=== PATIENT | female | born 1955 | race African-American/Black ===

== ENCOUNTER 2016-07-31 20:00 | Observation (INO) ==
[2016-07-31 21:01] LABS: Basophils % 0.3 % (0.0-0.8); Eosinophils % 0.3 % (0.00-10.9); Hematocrit 34.3 VOL% (35.7-47.0); Hemoglobin 10.9 GM/DL (12.0-16.0); Immature Granulocytes % 0.4 %; Immature Granulocytes Absolute 0.04 #; Lymphocytes # 2.2 10*3/uL (1.4-4.0); Lymphocytes % 22.6 % (21.3-54.2); Mean Corpuscular HGB Conc 31.8 GM/DL (32-36); Mean Corpuscular Hemoglobin 29 PG (27-34); Mean Corpuscular Volume 90.3 FL (87-102); Mean Platelet Volume 11.5 FL (9.6-12.0); Monocytes # 0.4 10*3/uL (0.11-0.8); Neutrophils % 72.4 % (38.7-73.9); Platelet Count 236 T/CUMM (130-400); Red Cell Distribution Width 16.7 % (9.3-17.3); White Blood Count 9.6 T/CUMM (4-12)
--- NOTE | 2016-07-31 21:06 | Emergency Department Note ---
Bubba Segura Brittany, am scribing for, and in the presence of, Adele Gomes DO 21:01. IEliseo Debra, DO, personally performed the services described in this documentation, ascribed by Queenie Mac in my presence, and it is both accurate and complete . Arrival - Arrival Chief Complaint: Alcohol Intoxication Stated Complaint: nausea/vomiting ED Nursing Triage Note: patient to room via ems with c/o nausea, vomitig. Patient does have a large amout of ETOH on board. Patient is confused and can not answer a lot of question. speech is slow and almost not understandable. Mode of Arrival: Stretcher Limitations: Altered Mental Status Source: Family, RN Notes Reviewed - History of Present Illness HPI Narrative: Ms. Macdonald is a 61 y/o black female presenting to the ED by EMS from home for further evaluation of Alcohol Intoxication. History is limited secondary to patient having an Altered Mental Status secondary to ETOH intoxication. Family will be providing history. Family member in room reports that a bystander found patient and activated EMS. Patient reportedly has a history of frequent ETOH use and has had 2-3 pints of [place] liquor today. She is a patient of Dr. Cameron. Family denies patient having a history of CHF. In room patient appears to be lethargic. She has dried drool surrounding her mouth and has snoring respirations. No other complaint/pain. Allergies/Adverse Reactions: Allergies Allergy/AdvReac Type Severity Reaction Status Date / Time Penicillins Allergy Nausea Verified 07/31/16 20:17 lisinopril AdvReac ANAPHYLAXIS Verified 07/31/16 20:17 Home Medications: Home Medications Medication Instructions Recorded Confirmed Type Folic Acid Tab 1 mg PO DAILY 03/31/16 04/21/16 History Lovastatin 40 mg PO DAILY 03/31/16 04/21/16 History Sertraline [Zoloft] 50 mg PO DAILY 03/31/16 04/21/16 History Carvedilol [Coreg] 3.125 mg PO BID #60 tablet 04/01/16 04/21/16 Rx Glimepiride [Amaryl] 1 mg PO BID #60 tablet 04/01/16 04/21/16 Rx Multivitamin (Centrum) [Centrum 1 tablet PO DAILY tablet 04/01/16 04/21/16 Rx Tab] Thiamine Tab [Vitamin B1 Tab] 100 mg PO DAILY tablet 04/01/16 04/21/16 Rx amLODIPine [Norvasc] 10 mg PO DAILY #30 tablet 04/01/16 04/21/16 Rx Acetaminophen Tab [Tylenol Tab] 325 mg PO Q4H PRN #0 tablet 04/28/16 Rx Levofloxacin Tab [Levaquin Tab] 500 mg PO DAILY #7 tablet 04/28/16 Rx Review of System - Review of System ROS unobtainable: due to mental status - Review of System Constitutional: Present: as per HPI Medical,Surgical,& Family Hx - Medical History Cardio: History of: Hypertension Psychological: History of: Depression Endocrine: History of: Diabetes Mellitus (IDDM), Diabetes Mellitus (NIDDM), Dyslipidemia Rheumatology: History of;: Gout (right foot) Respiratory: History of: Bronchitis Musculoskeletal: History of: Back/Neck Problems No history of: Osteoporosis - Surgical History Abdominal Surgeries: Surgical HX of: Colonoscopy (in last 5 years) - Family History Family History: Reports;: Family Diabetes, Family Hypertension - Social History Smoking Status: Never smoker Frequency of Alcohol Use: Frequently Type of Drug Use: None Exam Vital Signs: Vital Signs Temperature 97.3 F L 07/31/16 20:12 Pulse Rate 95 H 07/31/16 20:12 Respiratory Rate 22 07/31/16 20:12 Blood Pressure 142/87 07/31/16 20:12 O2 Sat by Pulse Oximetry 95 07/31/16 20:12 - General General appearance: appears intoxicated, lethargic - Head Head exam: Present: atraumatic, normocephalic, normal inspection - Eye Eye exam: Present: normal appearance, PERRL, EOMI - ENT ENT exam: Present: mucous membranes moist. Absent: normal oropharynx (dried drool surrounding the lips) - Neck Neck exam: Present: normal inspection - Chest Chest inspection: Present: normal inspection, symmetric chest wall rise - Respiratory Respiratory exam: Absent: normal lung sounds bilaterally (snoring respirations) - Cardiovascular Cardiovascular exam: Present: normal rhythm, tachycardia, normal heart sounds. Absent: regular rate - Abdominal Exam Abdominal exam: Present: soft, normal bowel sounds - Extremities Exam Extremities exam: Present: normal inspection - Back Exam Back exam: Present: normal inspection - Neurological Exam Neurological exam: Present: CN II-XII intact. Absent: alert (patient is not alert secondary to high ETOH intoxication), oriented X3, motor sensory deficit - Skin Skin exam: Present: warm, dry, intact, normal color, rash (chronic appearing rash) Course Course Narrative: pt will be admitted to hospitalist. Results - Labs CBC & BMP: 07/31/16 20:36 07/31/16 20:36 Lab Results: I have reviewed the patients labs Labs: Laboratory Tests 07/31/16 20:36 WBC 9.6 RBC 3.80 Hgb 10.9 L Hct 34.3 L MCHC 31.8 L Plt Count 236 Laboratory Tests 07/31/16 07/31/16 20:36 20:36 Sodium 142 Potassium 4.6 Chloride 110 H Carbon Dioxide 24 Anion Gap 12.6 BUN 22 H Creatinine 1.00 GFR Calculation 76 BUN/Creatinine Ratio 22.00 H Glucose 113 H Calculated Osmolality 286.1 Calcium 8.1 L Total Bilirubin < 0.39 AST 21 ALT 13 Alkaline Phosphatase 88 Total Protein 7.5 Albumin 3.8 Globulin 3.7 H Albumin/Globulin Ratio 1.0 L Salicylates < 2.8 L Acetaminophen < 2.0 L Serum Alcohol 462 Laboratory Tests 07/31/16 20:36 B-Natriuretic Peptide 72 Laboratory Tests 07/31/16 22:20 Urine Color Yellow Urine Appearance Slightly hazy Urine pH 5.0 Ur Specific [place] 1.013 Urine Protein >=500 Urine Glucose (UA) Negative Urine Ketones Negative Urine Blood Small Urine Nitrate Negative Urine Bilirubin Negative Urine Urobilinogen < 2.0 H Urine Leukocytes Negative Ur Squamous Epith Cells Occasional Urine Bacteria Occasional Urine Mucus Occasional Urine Yeast (Budding) Many - Diagnostic Findings Procedure: Chest x-ray: report reviewed by me (Continued cardiomegaly. There is nonspecific prominence of lung markings suspicious for interstitial pulmonary edema. Chronic/fibrotic change and interstitial pneumonia may have similar appearance. Question small bilateral pleural fluid. Visualized osseous and surrounding soft tissue structures appear grossly unchanged.), CT: report reviewed by me (CT Head: No acute intracranial abnormality is demonstrated. Mild global volume loss and probable mild chronic microvascular ischemic change. Old lacunar infarcts involving the region of the anterior limb of the internal capsule bilaterally. Bilateral proptosis noted which can be seen in thyroid disease.) Disposition Clinical Impression: Alcoholic intoxication Case discussed with: patient, patient's family Disposition: Still a Patient Condition: Stable Instructions: Alcohol Intoxication (ED) Time of Disposition: 23:16
[2016-07-31 21:19] LABS: Alanine Aminotransferase 13 U/L (13-56); Albumin 3.8 G/DL (3.4-5.0); Alkaline Phosphatase 88 U/L (45-117); Aspartate Amino Transferase 21 U/L (0-37); Bilirubin,Total < 0.39 MG/DL (0.2-1.0); Blood Urea Nitrogen 22 MG/DL (7-18); Calcium 8.1 MG/DL (8.5-10.1); Glucose 113 MG/DL (74-106); Osmolality,Calculated 286.1 MOS/KG (273-304); Potassium 4.6 MMOL/L (3.5-5.1); Salicylate < 2.8 MG/DL (2.8-20); Sodium 142 MMOL/L (136-145); Total Protein 7.5 G/DL (6.4-8.3)
[2016-07-31 21:20] LABS: Acetaminophen < 2.0 UG/ML (10-30)
--- NOTE | 2016-07-31 21:56 | XRay Report ---
XR chest 1V portable Indication: Abnormal breath sounds Comparison: Chest x-ray dated April 24, 2016 Technique: Single frontal view of the chest. Findings: Continued cardiomegaly. There is nonspecific prominence of lung markings suspicious for interstitial pulmonary edema. Chronic/fibrotic change and interstitial pneumonia may have similar appearance. Question small bilateral pleural fluid. Visualized osseous and surrounding soft tissue structures appear grossly unchanged. IMPRESSION: As above. PROCEDURE INTERPRETED AT [facility] DEPARTMENT OF RADIOLOGY Final Report Signed by: Dr Christiano Moy
[2016-07-31] MEDS ORDERED: SODIUM CHLORIDE 0.9% 1,000 ML IV STA (22:08)
--- NOTE | 2016-07-31 22:23 | CT Report ---
CT head/brain wo con Indication: AMS Comparison: None Technique: Multiple axial tomographic images of the brain were obtained without the use of intravenous contrast. Findings: Midline structures are nondisplaced. There is no evidence of acute intracranial hemorrhage or hydrocephalus. Mild periventricular and subcortical hypoattenuation noted which is nonspecific but consistent with chronic microvascular ischemic change. Demyelinating process and vasculitis less likely considerations. Mild global volume loss present. Old lacunar infarcts involving the region of the anterior limb of the internal capsule bilaterally. Atherosclerotic calcifications demonstrated. Bilateral proptosis noted which can be seen in thyroid disease. The visualized paranasal sinuses and bilateral mastoid air cells are essentially clear. IMPRESSION: No acute intracranial abnormality demonstrated. Mild global volume loss and probable mild chronic microvascular ischemic change. Old lacunar infarcts involving the region of the anterior limb of the internal capsule bilaterally. Bilateral proptosis noted which can be seen in thyroid disease. The CT exam was performed using one or more of the following dose reduction techniques: Automated exposure control, adjustment of the mA and/or kV according to patient size, or use of iterative reconstruction technique. PROCEDURE INTERPRETED AT [facility] DEPARTMENT OF RADIOLOGY Final Report Signed by: Dr Christiano Moy
[2016-07-31 22:56] LABS: Apearance,Urine Slightly Hazy (Clear); Bacteria,Urine Occasional /HPF (Few); Bilirubin,Urine Negative (Negative); Blood, Urine Small mg/dL (Negative); Glucose,Urine (UA) Negative (Negative); Ketones,Urine Negative (Negative); Mucus,Urine Occasional /LPF (Occasional); Nitrite,Urine Negative (Negative); Protein,Urine >=500 MG/DL; Squamous Epithelial Cell,Urine Occasional /HPF (0-10); Urine Color Yellow (Yellow); Urine Specific Gravity 1.013 (1.001-1.035); Urine Urobilinogen < 2.0 EU/DL (0.2-1.0)
--- NOTE | 2016-07-31 23:48 | Hospitalist History & Physical ---
Assessment and Plan (1) Acute alcohol intoxication Status: Acute Current Visit: Yes (2) Alcoholism Status: Acute Current Visit: Yes (3) Medical non-compliance Status: Acute Current Visit: Yes (4) Hypertension Status: Chronic Current Visit: No Qualifiers: Hypertension type: essential hypertension Qualified Code(s): I10 - Essential (primary) hypertension (5) Type 2 diabetes mellitus Status: Chronic Assessment and plan: Plan: Observe for alcohol withdrawal/combative behavior Start banana bag, follow-up renal function and electrolytes in the morning Sliding scale insulin and Accu-Cheks Repeat alcohol level in the morning, possibly discharge when patient sober and mentation more appropriate Current Visit: No Qualifiers: Diabetes mellitus terminologist insulin use: without terminologist use Chronic kidney disease stage: stage 3 (moderate) History of Present Illness Chief complaint: Found poorly responsive and drunk History of present illness: Ms. Macdonald is a 61 year old female with hypertension, type 2 diabetes, who is noncompliant. She was found poorly responsive at home tonight due to alcohol intoxication. She can provide little history due to her intoxication and current mental status, and there is no family present at this time. She is able to tell me that she drinks 2 pints of whiskey daily, denies chest pain, shortness of breath, or abdominal pain. CT brain negative for acute pathology, I was asked to admit the patient/observe due to her extreme alcohol intoxication and associated encephalopathy. Home Medications Medication Instructions Recorded Confirmed Type Folic Acid Tab 1 mg PO DAILY 03/31/16 04/21/16 History Lovastatin 40 mg PO DAILY 03/31/16 04/21/16 History Sertraline [Zoloft] 50 mg PO DAILY 03/31/16 04/21/16 History Carvedilol [Coreg] 3.125 mg PO BID #60 tablet 04/01/16 04/21/16 Rx Glimepiride [Amaryl] 1 mg PO BID #60 tablet 04/01/16 04/21/16 Rx Multivitamin (Centrum) [Centrum 1 tablet PO DAILY tablet 04/01/16 04/21/16 Rx Tab] Thiamine Tab [Vitamin B1 Tab] 100 mg PO DAILY tablet 04/01/16 04/21/16 Rx amLODIPine [Norvasc] 10 mg PO DAILY #30 tablet 04/01/16 04/21/16 Rx Acetaminophen Tab [Tylenol Tab] 325 mg PO Q4H PRN #0 tablet 04/28/16 Rx Levofloxacin Tab [Levaquin Tab] 500 mg PO DAILY #7 tablet 04/28/16 Rx Allergies Allergy/AdvReac Type Severity Reaction Status Date / Time Penicillins Allergy Nausea Verified 07/31/16 20:17 lisinopril AdvReac ANAPHYLAXIS Verified 07/31/16 20:17 Medical,Surgical,& Family Hx - Medical History Cardio: History of: Hypertension Psychological: History of: Depression Endocrine: History of: Diabetes Mellitus (NIDDM), Dyslipidemia Rheumatology: History of;: Gout (right foot) Respiratory: History of: Bronchitis Musculoskeletal: History of: Back/Neck Problems No history of: Osteoporosis - Surgical History Abdominal Surgeries: Surgical HX of: Colonoscopy (in last 5 years) - Family History Family History: Reports;: Family Diabetes, Family Hypertension - Social History Smoking Status: Never smoker Frequency of Alcohol Use: Frequently (2 pints of whiskey daily) Type of Drug Use: None Marital Status: Unknown Functional capacity: independent ambulation Review of systems: A 12 point review of systems is negative except as specified in the HPI Exam - Constitutional Vitals: Period Temp Pulse Resp BP Sys/Arcos Pulse Ox Last 24 Hr 97.3 F-97.3 F 95-95 22-22 142-142/87-87 95 Exam: EXAM: CONSTITUTIONAL: Very drowsy but arousable, NAD HEENT: NC, AT, OP benign, NICHOLE, EOMI CV: RRR no m/g/r RESP: clear B/L, no w/r/r GI: abd soft, NT, ND, +bowel sounds INTEGUMENTARY: Multiple excoriations on the body with various stages of healing EXTREMITIES: no c/c/e NEURO: no focal deficits PSYCH: Will arouse to verbal command, otherwise consistent with alcohol intoxication Results - Labs CBC & BMP: 07/31/16 20:36 07/31/16 20:36 Lab Results: I have reviewed the past 24 hour labs - Diagnostic Findings Procedure: Chest x-ray: image reviewed by me, report reviewed by me, CT: image reviewed by me, report reviewed by me
[2016-07-31] MEDS ORDERED: GLUCAGON 1 MG VIAL IM PRN (23:49)
[2016-07-31] MEDS ORDERED: ACETAMINOPHEN 325 MG TABLET PO PRN (23:49)
[2016-07-31] MEDS ORDERED: DEXTROSE 50% 25 GM/50 ML VIAL IV PRN (23:49)
[2016-07-31] MEDS ORDERED: MORPHINE 2 MG/1 ML SYRINGE IV PRN (23:49)
[2016-07-31] MEDS ORDERED: BISACODYL 5 MG TABLET PO PRN (23:49)
[2016-07-31] MEDS ORDERED: ONDANSETRON 4 MG/2 ML VIAL IV PRN (23:49)
[2016-07-31] MEDS ORDERED: LORazepam 2 MG/1 ML VIAL IV PRN (23:51)
[2016-08-01] MEDS ORDERED: THIAMINE INJ 100 MG, FOLIC ACID INJ 1 MG, MULTIVITAMIN INJ 10 ML in SODIUM CHLORIDE 0.4... IV SCH (01:00)
[2016-08-01 05:20] LABS: Basophils % 0.3 % (0.0-0.8); Eosinophils % 0.2 % (0.00-10.9); Hematocrit 33.8 VOL% (35.7-47.0); Hemoglobin 10.5 GM/DL (12.0-16.0); Immature Granulocytes % 0.7 %; Immature Granulocytes Absolute 0.06 #; Lymphocytes % 34.2 % (21.3-54.2); Mean Corpuscular HGB Conc 31.1 GM/DL (32-36); Mean Corpuscular Hemoglobin 28 PG (27-34); Mean Corpuscular Volume 89.9 FL (87-102); Mean Platelet Volume 11.3 FL (9.6-12.0); Monocytes # 0.4 10*3/uL (0.11-0.8); Monocytes % 4.9 % (1.7-12.7); Neutrophils # 5.2 10*3/uL (1.4-7.4); Neutrophils % 59.7 % (38.7-73.9); Platelet Count 235 T/CUMM (130-400); Red Blood Count 3.76 MC/CUMM (3.8-5.5); Red Cell Distribution Width 16.6 % (9.3-17.3); White Blood Count 8.8 T/CUMM (4-12)
[2016-08-01 07:02] LABS: Alanine Aminotransferase 12 U/L (13-56); Albumin 3.3 G/DL (3.4-5.0); Alkaline Phosphatase 84 U/L (45-117); Aspartate Amino Transferase 13 U/L (0-37); Bilirubin,Total < 0.39 MG/DL (0.2-1.0); Blood Urea Nitrogen 17 MG/DL (7-18); Glucose 123 MG/DL (74-106); Magnesium 1.6 MG/DL (1.8-2.4); Osmolality,Calculated 288.8 MOS/KG (273-304); Potassium 4.5 MMOL/L (3.5-5.1); Sodium 144 MMOL/L (136-145); Total Protein 6.9 G/DL (6.4-8.3)
[2016-08-01] MEDS: INSULIN REGULAR 100 UNIT/ML SUBCUT SCH ×2 (08:16→11:33)
[2016-08-01] MEDS ORDERED: CARVEDILOL 3.125 MG TABLET PO SCH (09:00)
[2016-08-01] MEDS ORDERED: PANTOPRAZOLE 40 MG TABLET PO SCH (09:00)
[2016-08-01] MEDS ORDERED: LOVASTATIN 20 MG TABLET PO SCH (09:00)
[2016-08-01] MEDS ORDERED: amLODIPine 10 MG TABLET PO SCH (09:00)
[2016-08-01] MEDS ORDERED: SERTRALINE 50 MG TABLET PO SCH (09:00)
[2016-08-01] MEDS ORDERED: GLIMEPIRIDE 2 MG TABLET PO SCH (09:00)
--- NOTE | 2016-08-01 10:19 | Discharge Summary ---
Hospital Course - Hospital Course Hospital Course: Ms. Macdonald is a 61 year old female with hypertension, type 2 diabetes, who is noncompliant. She was found poorly responsive at home last night due to alcohol intoxication. She could provide little history due to her intoxication and mental status, and there was no family present. She did report that she drinks 2 pints of whiskey daily, denied chest pain, shortness of breath, or abdominal pain. CT brain was negative for acute pathology. She was admitted to the hospitalist service due to her extreme alcohol intoxication and associated encephalopathy. She was started on a banana bag. This morning patient is alert and oriented x4. She reports drinking gin yesterday without eating anything. She was counseled on the dangers of alcholol use and showed no desire to stop drinking alcohol. She has reached maximal benefit of inpatient stay and will be discharged to home. - Time spent with patient Time with patient DS: Less than 30 minutes Diagnosis - Discharge Diagnosis (1) Hypertension Status: Chronic (2) Alcohol abuse Status: Chronic (3) Alcohol intoxication Status: Resolved (4) Type 2 diabetes mellitus Status: Chronic Specialty Discharge - Follow Up or Referrals Discharge Plan - Discharge Data Disposition: Disch To Home/Self Care Condition at Discharge: Stable Discharge Diet: advance to your usual diet Activity: resume usual activities as tolerated Hygiene: no restrictions Weight Bearing at Discharge: weight bear as tolerated Contact your physician if you experience:: fever over 101, Shortness of breath - Discharge Medications New Glimepiride [Amaryl] 1 mg PO BID tablet amLODIPine [Norvasc] 10 mg PO DAILY tablet Carvedilol [Coreg] 3.125 mg PO BID tablet Lovastatin [Mevacor] 40 mg PO DAILY tablet Continue Sertraline [Zoloft] 50 mg PO DAILY Folic Acid Tab 1 mg PO DAILY Thiamine Tab [Vitamin B1 Tab] 100 mg PO DAILY tablet Acetaminophen Tab [Tylenol Tab] 325 mg PO Q4H PRN #0 tablet PRN Reason: fever, headache/body aches Multivitamin (Centrum) [Centrum Tab] 1 tablet PO DAILY tablet Rosuvastatin Calcium [Crestor] 40 mg PO BEDTIME Allopurinol 100 mg PO PRN MDD 100mg PRN Reason: Gout Discontinued Lovastatin 40 mg PO DAILY Carvedilol [Coreg] 3.125 mg PO BID #60 tablet Glimepiride [Amaryl] 1 mg PO BID #60 tablet amLODIPine [Norvasc] 10 mg PO DAILY #30 tablet Levofloxacin Tab [Levaquin Tab] 500 mg PO DAILY #7 tablet - Follow Up or Referral - Forms/Instructions Instructions: Alcohol Intoxication (ED) Exam - Constitutional Vitals: Period Temp Pulse Resp BP Sys/Arcos Pulse Ox Last 24 Hr 97.3 F-98.5 F 83-95 17-22 133-142/71-87 95-98 General appearance: over weight - Head Head exam: Present: normocephalic, atraumatic - Eye Eye exam: Present: EOMI Pupils: Present: NICHOLE - ENT ENT exam: Present: normal exam - Neck Neck exam: Present: normal inspection - Respiratory Respiratory exam: Present: clear to auscultation bilaterally. Absent: rhonchi, wheezes - Cardiovascular Cardiovascular exam: Present: regular rate and rhythm - GI/Abdominal GI/Abdominal exam: Present: normal bowel sounds, soft. Absent: tenderness, rebound - Extremities Exam Extremities exam: Present: normal inspection - Back Exam Back exam: Present: normal inspection - Neurological Exam Neurological exam: Present: alert, oriented X3 - Psychiatric Psychiatric exam: Present: normal affect, normal mood - Skin Skin exam: Present: warm, intact Discharge Results Labs on day of discharge: Labs from last 24 hours 08/01/16 08/01/16 08/01/16 07:30 04:56 04:56 WBC 8.8 RBC 3.76 L Hgb 10.5 L Hct 33.8 L MCV 89.9 MCH 28 MCHC 31.1 L RDW 16.6 Plt Count 235 MPV 11.3 Neut % (Auto) 59.7 Lymph % (Auto) 34.2 [place] % (Auto) 4.9 Eos % (Auto) 0.2 Baso % (Auto) 0.3 Neut # (Auto) 5.2 Lymph # (Auto) 3.0 [place] # (Auto) 0.4 Eos # (Auto) 0.0 Baso # (Auto) 0.0 Immature Gran % 0.7 Nucleated RBC % 0.0 Immature Gran # 0.06 Nucleated RBCs # 0.00 Sodium 144 Potassium 4.5 Chloride 112 H Carbon Dioxide 23 Anion Gap 13.5 BUN 17 Creatinine 0.70 GFR Calculation 116 BUN/Creatinine Ratio 24.00 H Glucose 123 H POC Glucose 129 H Calculated Osmolality 288.8 Calcium 8.0 L Magnesium 1.6 L Total Bilirubin < 0.39 AST 13 ALT 12 L Alkaline Phosphatase 84 B-Natriuretic Peptide Total Protein 6.9 Albumin 3.3 L Globulin 3.6 H Albumin/Globulin Ratio 0.9 L Urine Color Urine Appearance Urine pH Ur Specific [place] Urine Protein Urine Glucose (UA) Urine Ketones Urine Blood Urine Nitrate Urine Bilirubin Urine Urobilinogen Urine Leukocytes Ur Squamous Epith Cells Urine Bacteria Urine Mucus Urine Yeast (Budding) Ur Culture Indicated? Salicylates Acetaminophen Serum Alcohol 319 08/01/16 07/31/16 07/31/16 01:04 22:20 20:36 WBC RBC Hgb Hct MCV MCH MCHC RDW Plt Count MPV Neut % (Auto) Lymph % (Auto) [place] % (Auto) Eos % (Auto) Baso % (Auto) Neut # (Auto) Lymph # (Auto) [place] # (Auto) Eos # (Auto) Baso # (Auto) Immature Gran % Nucleated RBC % Immature Gran # Nucleated RBCs # Sodium Potassium Chloride Carbon Dioxide Anion Gap BUN Creatinine GFR Calculation BUN/Creatinine Ratio Glucose POC Glucose 123 H Calculated Osmolality Calcium Magnesium Total Bilirubin AST ALT Alkaline Phosphatase B-Natriuretic Peptide Total Protein Albumin Globulin Albumin/Globulin Ratio Urine Color Yellow Urine Appearance Slightly hazy Urine pH 5.0 Ur Specific [place] 1.013 Urine Protein >=500 Urine Glucose (UA) Negative Urine Ketones Negative Urine Blood Small Urine Nitrate Negative Urine Bilirubin Negative Urine Urobilinogen < 2.0 H Urine Leukocytes Negative Ur Squamous Epith Cells Occasional Urine Bacteria Occasional Urine Mucus Occasional Urine Yeast (Budding) Many Ur Culture Indicated? Not indicated Salicylates < 2.8 L Acetaminophen < 2.0 L Serum Alcohol 07/31/16 07/31/16 07/31/16 20:36 20:36 20:36 WBC 9.6 RBC 3.80 Hgb 10.9 L Hct 34.3 L MCV 90.3 MCH 29 MCHC 31.8 L RDW 16.7 Plt Count 236 MPV 11.5 Neut % (Auto) 72.4 Lymph % (Auto) 22.6 [place] % (Auto) 4.0 Eos % (Auto) 0.3 Baso % (Auto) 0.3 Neut # (Auto) 7.0 Lymph # (Auto) 2.2 [place] # (Auto) 0.4 Eos # (Auto) 0.0 Baso # (Auto) 0.0 Immature Gran % 0.4 Nucleated RBC % 0.0 Immature Gran # 0.04 Nucleated RBCs # 0.00 Sodium 142 Potassium 4.6 Chloride 110 H Carbon Dioxide 24 Anion Gap 12.6 BUN 22 H Creatinine 1.00 GFR Calculation 76 BUN/Creatinine Ratio 22.00 H Glucose 113 H POC Glucose Calculated Osmolality 286.1 Calcium 8.1 L Magnesium Total Bilirubin < 0.39 AST 21 ALT 13 Alkaline Phosphatase 88 B-Natriuretic Peptide 72 Total Protein 7.5 Albumin 3.8 Globulin 3.7 H Albumin/Globulin Ratio 1.0 L Urine Color Urine Appearance Urine pH Ur Specific [place] Urine Protein Urine Glucose (UA) Urine Ketones Urine Blood Urine Nitrate Urine Bilirubin Urine Urobilinogen Urine Leukocytes Ur Squamous Epith Cells Urine Bacteria Urine Mucus Urine Yeast (Budding) Ur Culture Indicated? Salicylates Acetaminophen Serum Alcohol 462 DS: Provider Date of admission: 07/31/16 23:49 Primary care physician: . No PCP Attending physician on admission: Azeem Grande DO Discharging clinician: Juan Fishman MD
[2016-08-01 12:40] VITALS: BP 126/76
== END 2016-08-01 13:45 | disposition home or self-care (01) ==
LOC: EDBD → EDUNIT# → N.EDINP 20:00 → N.ED 20:00 → SUATTDRO 23:49 → N.4E 08-01 00:13
PROVIDERS: ADMIT Internal Medicine; ATTEND Internal Medicine

== ENCOUNTER 2019-12-03 18:17 | Inpatient (IN) ==
[2019-12-03 20:26] LABS: Basophils % 0.6 % (0.0-0.8); Eosinophils # 0.1 10*3/uL (0.0-0.87); Eosinophils % 1.8 % (0.00-10.9); Hemoglobin 10.1 GM/DL (12.0-16.0); Immature Granulocytes % 0.5 %; Immature Granulocytes Absolute 0.03 #; Lymphocytes # 1.6 10*3/uL (1.4-4.0); Lymphocytes % 24.7 % (21.3-54.2); Mean Corpuscular HGB Conc 30.6 GM/DL (32-36); Mean Corpuscular Volume 90.9 FL (87-102); Mean Platelet Volume 9.7 FL (9.6-12.0); Monocytes % 12.1 % (1.7-12.7); Neutrophils % 60.3 % (38.7-73.9); Platelet Count 163 T/CUMM (130-400); Red Blood Count 3.63 MC/CUMM (3.8-5.5); Red Cell Distribution Width 20.5 % (9.3-17.3); White Blood Count 6.6 T/CUMM (4-12)
[2019-12-03] MEDS ORDERED: SODIUM CHLORIDE 0.9% 500 ML IV STA (20:26)
[2019-12-03 20:38] LABS: PT Patient Result 11.2 SECS (9.8-11.9); Partial Thromboplastin Time 27.6 SECS (23.9-33.8)
[2019-12-03 20:46] LABS: Alanine Aminotransferase 25 U/L (13-56); Albumin 3.3 G/DL (3.4-5.0); Alkaline Phosphatase 74 U/L (45-117); Aspartate Amino Transferase 26 U/L (0-37); Bilirubin,Total < 0.39 MG/DL (0.2-1.0); Blood Urea Nitrogen 26 MG/DL (7-18); Calcium 8.3 MG/DL (8.5-10.1); Estimated Glom Filtration Rate 44 ML/MIN; Glucose 104 MG/DL (74-106); Total Protein 7.5 G/DL (6.4-8.3)
[2019-12-03] MEDS ORDERED: GLUCAGON 1 MG VIAL IM PRN ×2 (23:55)
[2019-12-03] MEDS ORDERED: ZALEPLON 5 MG CAPSULE PO PRN (23:55)
[2019-12-03] MEDS ORDERED: diphenhydrAMINE CAP 25 MG CAPSULE PO PRN (23:55)
[2019-12-03] MEDS ORDERED: hydrALAZINE 20 MG/1 ML VIAL IV PRN (23:55)
[2019-12-03] MEDS ORDERED: DOCUSATE SODIUM 100 MG CAPSULE PO PRN (23:55)
[2019-12-03] MEDS ORDERED: NICOTINE 21 MG/24 HR PATCH TRANSDERM PRN (23:55)
[2019-12-03] MEDS ORDERED: guaiFENesin/DM ER 600-30 MG TABLET PO PRN (23:55)
[2019-12-03] MEDS ORDERED: MORPHINE 4 MG/1 ML VIAL IV PRN (23:55)
[2019-12-03] MEDS ORDERED: ONDANSETRON 4 MG/2 ML VIAL IV PRN (23:55)
[2019-12-03] MEDS ORDERED: DEXTROSE 50% 25 GM/50 ML VIAL IV PRN ×2 (23:55)
[2019-12-04] MEDS ORDERED: PANTOPRAZOLE INJ 80 MG in SODIUM CHLORIDE 0.9% 100 ML IV ONE (00:30)
[2019-12-04] MEDS: PANTOPRAZOLE INJ 200 MG in SODIUM CHLORIDE 0.9% 250 ML IV SCH (03:48)
[2019-12-04 05:50] LABS: Basophils % 0.3 % (0.0-0.8); Eosinophils # 0.1 10*3/uL (0.0-0.87); Eosinophils % 1.1 % (0.00-10.9); Hematocrit 28.5 VOL% (35.7-47.0); Hemoglobin 8.9 GM/DL (12.0-16.0); Immature Granulocytes % 0.5 %; Immature Granulocytes Absolute 0.03 #; Lymphocytes % 14.5 % (21.3-54.2); Mean Corpuscular HGB Conc 31.2 GM/DL (32-36); Mean Corpuscular Volume 89.9 FL (87-102); Mean Platelet Volume 11.1 FL (9.6-12.0); Monocytes % 8.5 % (1.7-12.7); Neutrophils % 75.1 % (38.7-73.9); Platelet Count 147 T/CUMM (130-400); Red Blood Count 3.17 MC/CUMM (3.8-5.5); White Blood Count 6.6 T/CUMM (4-12)
[2019-12-04 06:22] LABS: Calcium 8.3 MG/DL (8.5-10.1); Osmolality,Calculated 286.3 MOS/KG (273-304)
[2019-12-04] MEDS ORDERED: MAGNESIUM SULF RIDER 4 GM in PREMIX 1 EACH IV ONE (07:20)
[2019-12-04] MEDS ORDERED: hydrOXYzine HCL 25 MG TABLET PO PRN (09:28)
[2019-12-04] MEDS ORDERED: LORazepam 2 MG/1 ML VIAL IV PRN (09:38)
[2019-12-04] MEDS ORDERED: THIAMINE INJ 100 MG, FOLIC ACID INJ 1 MG, MULTIVITAMIN INJ 10 ML in SODIUM CHLORIDE 0.9... IV ONE (09:38)
[2019-12-04] MEDS: INSULIN LISPRO 100 UNIT/ML SUBCUT SCH ×4 (09:48→22:11)
[2019-12-04] MEDS: SERTRALINE 50 MG TABLET PO SCH ×2 (09:49→13:30)
[2019-12-04] MEDS: GABAPENTIN 300 MG CAPSULE PO SCH ×2 (09:49→22:11)
[2019-12-04] MEDS: MAGNESIUM CHLORIDE 64 MG TABLET PO SCH ×3 (09:49→22:11)
[2019-12-04] MEDS: amLODIPine 10 MG TABLET PO SCH ×2 (09:49→13:29)
[2019-12-04 12:08] LABS: Folate > 24.0 NG/ML (5.4-24.0); Vitamin B12 235 PG/ML (211-911)
[2019-12-04 12:57] LABS: Hematocrit 30.4 VOL% (35.7-47.0); Hemoglobin 9.3 GM/DL (12.0-16.0)
[2019-12-04] MEDS: CLINDAMYCIN INJ 300 MG in PREMIX 1 EACH IV SCH ×2 (13:12→17:10)
[2019-12-04] MEDS: chlordiazePOXIDE 25 MG CAPSULE PO SCH ×3 (13:29→22:11)
[2019-12-04] MEDS: CYANOCOBALAMIN 1000 MCG/1 ML VIAL IM SCH (15:32)
[2019-12-04 19:00] LABS: Hematocrit 23.8 VOL% (35.7-47.0); Hemoglobin 7.5 GM/DL (12.0-16.0)
[2019-12-04] MEDS: THIAMINE 100 MG TABLET PO SCH (22:10)
[2019-12-05] MEDS: PANTOPRAZOLE INJ 200 MG in SODIUM CHLORIDE 0.9% 250 ML IV SCH (02:09)
[2019-12-05] MEDS: CLINDAMYCIN INJ 300 MG in PREMIX 1 EACH IV SCH ×2 (02:50→17:42)
[2019-12-05] MEDS: chlordiazePOXIDE 25 MG CAPSULE PO SCH ×3 (04:25→18:01)
[2019-12-05 06:16] LABS: Basophils % 0.4 % (0.0-0.8); Eosinophils # 0.1 10*3/uL (0.0-0.87); Eosinophils % 2.3 % (0.00-10.9); Hematocrit 25.7 VOL% (35.7-47.0); Hemoglobin 8.1 GM/DL (12.0-16.0); Immature Granulocytes % 0.4 %; Immature Granulocytes Absolute 0.02 #; Lymphocytes % 20.3 % (21.3-54.2); Mean Corpuscular HGB Conc 31.5 GM/DL (32-36); Mean Corpuscular Volume 91.8 FL (87-102); Mean Platelet Volume 11.7 FL (9.6-12.0); Monocytes % 11.9 % (1.7-12.7); Neutrophils % 64.7 % (38.7-73.9); Platelet Count 128 T/CUMM (130-400); White Blood Count 5.1 T/CUMM (4-12)
[2019-12-05 06:37] LABS: Calcium 8.4 MG/DL (8.5-10.1); Osmolality,Calculated 277.4 MOS/KG (273-304)
[2019-12-05 06:43] LABS: Hypochromasia 2+; Microcytosis 1+; Platelet Estimate Adequate
[2019-12-05] MEDS: INSULIN LISPRO 100 UNIT/ML SUBCUT SCH ×4 (08:53→21:27)
[2019-12-05] MEDS ORDERED: SODIUM CHLORIDE 0.9% 1,000 ML IV PRN (08:58)
[2019-12-05] MEDS ORDERED: POTASSIUM CHLORIDE 20 MEQ TABLET PO ONE (09:30)
[2019-12-05] MEDS: GABAPENTIN 300 MG CAPSULE PO SCH ×2 (10:11→21:26)
[2019-12-05] MEDS: amLODIPine 10 MG TABLET PO SCH (10:11)
[2019-12-05] MEDS: MAGNESIUM CHLORIDE 64 MG TABLET PO SCH ×2 (10:11→21:26)
[2019-12-05] MEDS: SERTRALINE 50 MG TABLET PO SCH (10:12)
[2019-12-05] MEDS: THIAMINE 100 MG TABLET PO SCH ×2 (10:12→21:26)
[2019-12-05 11:04] LABS: Hematocrit 27.6 VOL% (35.7-47.0); Hemoglobin 8.6 GM/DL (12.0-16.0)
[2019-12-05] MEDS: SODIUM CHLORIDE 0.9% 1,000 ML IV SCH ×3 (11:38→17:38)
[2019-12-05] MEDS: CYANOCOBALAMIN 1000 MCG/1 ML VIAL IM SCH (12:15)
[2019-12-05 18:57] LABS: Hematocrit 30.5 VOL% (35.7-47.0); Hemoglobin 9.4 GM/DL (12.0-16.0)
[2019-12-05 21:00] LABS: Hematocrit 30.3 VOL% (35.7-47.0); Hemoglobin 9.5 GM/DL (12.0-16.0)
[2019-12-06] MEDS: chlordiazePOXIDE 25 MG CAPSULE PO SCH ×2 (01:40→09:12)
[2019-12-06] MEDS: SODIUM CHLORIDE 0.9% 1,000 ML IV SCH ×2 (01:40→13:56)
[2019-12-06] MEDS: CLINDAMYCIN INJ 300 MG in PREMIX 1 EACH IV SCH ×2 (01:40→09:12)
[2019-12-06] MEDS: PANTOPRAZOLE INJ 200 MG in SODIUM CHLORIDE 0.9% 250 ML IV SCH (03:59)
[2019-12-06 08:01] LABS: Basophils % 0.4 % (0.0-0.8); Eosinophils # 0.2 10*3/uL (0.0-0.87); Eosinophils % 3.2 % (0.00-10.9); Hematocrit 32.9 VOL% (35.7-47.0); Hemoglobin 10.4 GM/DL (12.0-16.0); Immature Granulocytes % 0.6 %; Immature Granulocytes Absolute 0.03 #; Lymphocytes # 0.9 10*3/uL (1.4-4.0); Lymphocytes % 17.8 % (21.3-54.2); Mean Corpuscular HGB Conc 31.6 GM/DL (32-36); Mean Platelet Volume 12.1 FL (9.6-12.0); Monocytes % 11.4 % (1.7-12.7); Neutrophils % 66.6 % (38.7-73.9); Platelet Count 116 T/CUMM (130-400); Red Cell Distribution Width 17.8 % (9.3-17.3)
[2019-12-06] MEDS: INSULIN LISPRO 100 UNIT/ML SUBCUT SCH ×2 (08:09→11:29)
[2019-12-06 08:17] LABS: Calcium 8.5 MG/DL (8.5-10.1); Osmolality,Calculated 284.3 MOS/KG (273-304)
[2019-12-06] MEDS: GABAPENTIN 300 MG CAPSULE PO SCH (08:51)
[2019-12-06] MEDS: amLODIPine 10 MG TABLET PO SCH (08:51)
[2019-12-06] MEDS: THIAMINE 100 MG TABLET PO SCH (08:52)
[2019-12-06] MEDS: SERTRALINE 50 MG TABLET PO SCH (08:52)
[2019-12-06] MEDS: CYANOCOBALAMIN 1000 MCG/1 ML VIAL IM SCH (08:52)
[2019-12-06] MEDS: MAGNESIUM CHLORIDE 64 MG TABLET PO SCH (08:52)
[2019-12-06] MEDS ORDERED: PANTOPRAZOLE 40 MG VIAL IV SCH (09:00)
[2019-12-06 11:51] VITALS: BP 131/81
== END 2019-12-06 15:55 | disposition home or self-care (01) | DRG 377 ==
LOC: N.EDINP 18:17 → N.ED 18:17 → N.3E 12-04 01:18
PROVIDERS: ADMIT Internal Medicine; ATTEND Internal Medicine

== ENCOUNTER 2021-08-31 15:51 | Observation (INO) ==
[2021-08-31 17:27] LABS: Basophils % 0.2 % (0.0-0.8); Eosinophils # 0.1 10*3/uL (0.0-0.87); Hematocrit 33.1 VOL% (35.7-47.0); Hemoglobin 10.1 GM/DL (12.0-16.0); Immature Granulocytes % 0.6 %; Immature Granulocytes Absolute 0.05 #; Lymphocytes # 2.1 10*3/uL (1.4-4.0); Lymphocytes % 23.4 % (21.3-54.2); Mean Corpuscular HGB Conc 30.5 GM/DL (32-36); Mean Corpuscular Volume 97.9 FL (87-102); Mean Platelet Volume 11.4 FL (9.6-12.0); Monocytes # 0.6 10*3/uL (0.11-0.8); Neutrophils % 67.8 % (38.7-73.9); Platelet Count 270 T/CUMM (130-400); Red Blood Count 3.38 MC/CUMM (3.8-5.5); Red Cell Distribution Width 12.6 % (9.3-17.3); White Blood Count 8.8 T/CUMM (4-12)
[2021-08-31 17:47] LABS: Alanine Aminotransferase 12 U/L (13-56); Albumin 3.3 G/DL (3.4-5.0); Alkaline Phosphatase 97 U/L (45-117); Aspartate Amino Transferase 10 U/L (0-37); Bilirubin,Total < 0.39 MG/DL (0.20-1.00); Blood Urea Nitrogen 38 MG/DL (7-18); Calcium 8.6 MG/DL (8.5-10.1); Carbon Dioxide 21 MMOL/L (21-32); Chloride 111 MMOL/L (98-107); Glucose 63 MG/DL (74-106); Osmolality,Calculated 287.3 MOS/KG (273-304); Potassium 4.5 MMOL/L (3.5-5.1); Sodium 141 MMOL/L (136-145); Total Protein 8.2 G/DL (6.4-8.2); Uric Acid 6.7 MG/DL (2.6-6.0)
[2021-08-31] MEDS ORDERED: ACETAMINOPHEN 325 MG TABLET PO PRN (19:27)
[2021-08-31] MEDS ORDERED: GLUCAGON 1 MG VIAL IM PRN (19:27)
[2021-08-31] MEDS ORDERED: ONDANSETRON 4 MG/2 ML VIAL IV PRN (19:27)
[2021-08-31] MEDS ORDERED: DEXTROSE 50% 25 GM/50 ML VIAL IV PRN (19:27)
[2021-08-31] MEDS ORDERED: DEXTROSE 10% 250 ML BAG IV PRN (19:45)
[2021-08-31] MEDS: INSULIN REGULAR 100 UNIT/ML SUBCUT SCH (22:04)
[2021-08-31] MEDS: HEPARIN 5,000 UNIT/1 ML VIAL SUBCUT SCH (22:30)
[2021-08-31] MEDS: cefTRIAXone 2,000 MG in SODIUM CHLORIDE 0.9% 100 ML IV SCH (22:30)
[2021-08-31] MEDS: THIAMINE 100 MG TABLET PO SCH (22:30)
[2021-08-31] MEDS: SODIUM CHLORIDE 0.45% 1,000 ML IV SCH (22:30)
[2021-09-01 06:35] LABS: Basophils % 0.4 % (0.0-0.8); Eosinophils # 0.1 10*3/uL (0.0-0.87); Eosinophils % 1.2 % (0.00-10.9); Hematocrit 29.5 VOL% (35.7-47.0); Hemoglobin 8.9 GM/DL (12.0-16.0); Immature Granulocytes % 0.9 %; Immature Granulocytes Absolute 0.07 #; Lymphocytes # 1.4 10*3/uL (1.4-4.0); Lymphocytes % 17.8 % (21.3-54.2); Mean Corpuscular HGB Conc 30.2 GM/DL (32-36); Mean Corpuscular Volume 98.7 FL (87-102); Mean Platelet Volume 11.6 FL (9.6-12.0); Monocytes # 0.8 10*3/uL (0.11-0.8); Monocytes % 9.6 % (1.7-12.7); Neutrophils % 70.1 % (38.7-73.9); Platelet Count 237 T/CUMM (130-400); Red Blood Count 2.99 MC/CUMM (3.8-5.5); Red Cell Distribution Width 12.6 % (9.3-17.3); White Blood Count 8.1 T/CUMM (4-12)
[2021-09-01 06:39] LABS: Calcium 8.5 MG/DL (8.5-10.1); Osmolality,Calculated 296.7 MOS/KG (273-304); Potassium 4.5 MMOL/L (3.5-5.1)
[2021-09-01] MEDS: INSULIN REGULAR 100 UNIT/ML SUBCUT SCH ×4 (08:09→21:35)
[2021-09-01] MEDS: chlordiazePOXIDE 10 MG CAPSULE PO SCH ×3 (08:56→21:35)
[2021-09-01] MEDS: SODIUM CHLORIDE 0.45% 1,000 ML IV SCH (08:56)
[2021-09-01] MEDS: PANTOPRAZOLE 40 MG TABLET PO SCH (08:56)
[2021-09-01] MEDS: THIAMINE 100 MG TABLET PO SCH ×2 (08:56→21:35)
[2021-09-01] MEDS: predniSONE 20 MG TABLET PO SCH (08:56)
[2021-09-01] MEDS: HEPARIN 5,000 UNIT/1 ML VIAL SUBCUT SCH ×2 (08:56→21:35)
[2021-09-01] MEDS: SERTRALINE 50 MG TABLET PO SCH (08:57)
[2021-09-01] MEDS: cefTRIAXone 2,000 MG in SODIUM CHLORIDE 0.9% 100 ML IV SCH (21:37)
[2021-09-01 22:18] LABS: Bilirubin,Urine Negative (Negative); Blood, Urine Trace mg/dL (Negative); Glucose,Urine (UA) 100 mg/dL (Negative); Ketones,Urine Negative (Negative); Nitrite,Urine Negative (Negative); Protein,Urine 100 mg/dL (Negative); Urine Appearance Clear (Clear); Urine Color Light Yellow (Yellow); Urine Specific Gravity 1.015 (1.001-1.035); Urine Urobilinogen 0.2 eU/dL (<2.0)
[2021-09-01 22:20] LABS: Bacteria,Urine Occasional /HPF (Few); RBC,Urine 1 /HPF (0-4); Squamous Epithelial Cell,Urine Occasional /HPF (0-10)
[2021-09-02] MEDS: SODIUM CHLORIDE 0.45% 1,000 ML IV SCH ×4 (03:07→16:32)
[2021-09-02 05:03] LABS: Basophils % 0.1 % (0.0-0.8); Eosinophils % 0.1 % (0.00-10.9); Hematocrit 26.5 VOL% (35.7-47.0); Immature Granulocytes % 0.4 %; Immature Granulocytes Absolute 0.03 #; Lymphocytes # 0.7 10*3/uL (1.4-4.0); Lymphocytes % 9.6 % (21.3-54.2); Mean Corpuscular HGB Conc 30.2 GM/DL (32-36); Mean Platelet Volume 11.8 FL (9.6-12.0); Monocytes # 0.9 10*3/uL (0.11-0.8); Monocytes % 12.4 % (1.7-12.7); Neutrophils % 77.4 % (38.7-73.9); Platelet Count 203 T/CUMM (130-400); Red Blood Count 2.76 MC/CUMM (3.8-5.5); Red Cell Distribution Width 12.3 % (9.3-17.3); White Blood Count 7.4 T/CUMM (4-12)
[2021-09-02 05:19] LABS: Alanine Aminotransferase 13 U/L (13-56); Albumin 2.7 G/DL (3.4-5.0); Alkaline Phosphatase 89 U/L (45-117); Aspartate Amino Transferase 20 U/L (0-37); Bilirubin,Total < 0.39 MG/DL (0.20-1.00); Blood Urea Nitrogen 42 MG/DL (7-18); Calcium 9.1 MG/DL (8.5-10.1); Carbon Dioxide 22 MMOL/L (21-32); Chloride 108 MMOL/L (98-107); Glucose 116 MG/DL (74-106); Osmolality,Calculated 286.7 MOS/KG (273-304); Sodium 138 MMOL/L (136-145); Total Protein 6.9 G/DL (6.4-8.2)
[2021-09-02] MEDS: INSULIN REGULAR 100 UNIT/ML SUBCUT SCH ×4 (08:06→20:56)
[2021-09-02] MEDS: predniSONE 20 MG TABLET PO SCH (08:26)
[2021-09-02] MEDS: chlordiazePOXIDE 10 MG CAPSULE PO SCH ×3 (08:26→20:51)
[2021-09-02] MEDS: SERTRALINE 50 MG TABLET PO SCH (08:26)
[2021-09-02] MEDS: THIAMINE 100 MG TABLET PO SCH ×2 (08:26→20:51)
[2021-09-02] MEDS: PANTOPRAZOLE 40 MG TABLET PO SCH (08:26)
[2021-09-02] MEDS: HEPARIN 5,000 UNIT/1 ML VIAL SUBCUT SCH ×2 (08:26→20:53)
[2021-09-03] MEDS: SODIUM CHLORIDE 0.45% 1,000 ML IV SCH (02:28)
[2021-09-03 06:25] LABS: Basophils % 0.2 % (0.0-0.8); Hematocrit 28.2 VOL% (35.7-47.0); Hemoglobin 8.8 GM/DL (12.0-16.0); Immature Granulocytes % 1.1 %; Immature Granulocytes Absolute 0.07 #; Lymphocytes # 0.8 10*3/uL (1.4-4.0); Lymphocytes % 11.9 % (21.3-54.2); Mean Corpuscular HGB Conc 31.2 GM/DL (32-36); Mean Corpuscular Volume 96.6 FL (87-102); Mean Platelet Volume 11.3 FL (9.6-12.0); Monocytes # 0.6 10*3/uL (0.11-0.8); Monocytes % 9.2 % (1.7-12.7); Neutrophils % 77.6 % (38.7-73.9); Platelet Count 229 T/CUMM (130-400); Red Blood Count 2.92 MC/CUMM (3.8-5.5); Red Cell Distribution Width 12.1 % (9.3-17.3); White Blood Count 6.3 T/CUMM (4-12)
[2021-09-03 06:57] LABS: Alanine Aminotransferase 13 U/L (13-56); Albumin 2.8 G/DL (3.4-5.0); Alkaline Phosphatase 100 U/L (45-117); Aspartate Amino Transferase 10 U/L (0-37); Bilirubin,Total < 0.39 MG/DL (0.20-1.00); Blood Urea Nitrogen 42 MG/DL (7-18); Calcium 8.8 MG/DL (8.5-10.1); Carbon Dioxide 22 MMOL/L (21-32); Chloride 109 MMOL/L (98-107); Glucose 171 MG/DL (74-106); Osmolality,Calculated 289.7 MOS/KG (273-304); Potassium 4.7 MMOL/L (3.5-5.1); Sodium 138 MMOL/L (136-145)
[2021-09-03] MEDS: INSULIN REGULAR 100 UNIT/ML SUBCUT SCH (08:04)
[2021-09-03 08:28] VITALS: BP 155/88
[2021-09-03] MEDS: chlordiazePOXIDE 10 MG CAPSULE PO SCH (09:04)
[2021-09-03] MEDS: THIAMINE 100 MG TABLET PO SCH (09:04)
[2021-09-03] MEDS: PANTOPRAZOLE 40 MG TABLET PO SCH (09:04)
[2021-09-03] MEDS: SERTRALINE 50 MG TABLET PO SCH (09:04)
[2021-09-03] MEDS: HEPARIN 5,000 UNIT/1 ML VIAL SUBCUT SCH (09:05)
[2021-09-03] MEDS: predniSONE 20 MG TABLET PO SCH (09:05)
== END 2021-09-03 14:30 | disposition home or self-care (01) ==
LOC: N.ED 15:51 → N.EDINP 15:51 → SUATTDRO 19:27 → N.EDINP 09-01 02:14 → N.3E 09-01 02:33
PROVIDERS: ADMIT Family Medicine; ATTEND Emergency Medicine